=== PATIENT | female | born 2000 | race Two or more races ===

== ENCOUNTER 2019-06-19 11:26 | Emergency (ER) | payer MEDICAID ==
[~2019-06-19] VITALS: Ht 167.6 cm; Wt 131.5 kg
[2019-06-19 11:36] VITALS: BP 116/83
[2019-06-19] MEDS ORDERED: ACETAMINOPHEN 325 MG TAB PO ONE (13:45)
[2019-06-19] MEDS ORDERED: METHOCARBAMOL 500 MG TAB PO ONE (13:45)
== END 2019-06-19 14:24 | disposition home or self-care (01) ==
LOC: ER 11:26
DX: M62.838 Other muscle spasm (principal); R51 Headache; H53.8 Other visual disturbances; R20.2 Paresthesia of skin; K21.9 Gastro-esophageal reflux disease without esophagitis

== ENCOUNTER 2020-03-16 06:20 | Observation (INO) | payer MEDICAID ==
[2020-03-16 07:32] LABS: Urine Bacteria NONE SEEN /hpf (None Seen); Urine Blood Negative /uL (Negative); Urine Mucus FEW (None Seen); Urine Specific Gravity 1.016 (1.001-1.035); Urine WBC 22 /hpf (0 - 5)
[2020-03-16] MEDS ORDERED: LACTATED RINGER'S 1,000 ML IV ONE (08:30)
== END 2020-03-16 09:14 | disposition home or self-care (01) | DRG 563 ==
LOC: LDRP 06:20
PROVIDERS: ADMIT Specialist; ATTEND Specialist
DX: O60.02 Preterm labor without delivery, second trimester (principal); O62.9 Abnormality of forces of labor, unspecified; Z3A.26 26 weeks gestation of pregnancy
CPT/HCPCS: 59025; 81001; 81002; 87086; 96360; G0378; U0003

== ENCOUNTER 2020-05-29 14:47 | Observation (INO) | payer MEDICAID ==
[~2020-05-29] VITALS: Ht 167.6 cm; Wt 152.4 kg
== END 2020-05-29 16:25 | disposition home or self-care (01) ==
LOC: LDRP 14:47
PROVIDERS: ADMIT Obstetrics & Gynecology; ATTEND Obstetrics & Gynecology
DX: O42.92 Full-term premature rupture of membranes, unspecified as to length of time between rupture and onset of labor (principal); Z3A.37 37 weeks gestation of pregnancy
CPT/HCPCS: 59025; 81002; 84112; G0378; Q0114

== ENCOUNTER 2020-06-11 21:09 | Observation (INO) | payer MEDICAID | END 2020-06-11 23:59 | disposition home or self-care (01) | LOC: LDRP 21:09 | PROVIDERS: ADMIT Obstetrics & Gynecology; ATTEND Obstetrics & Gynecology | DX: O62.9 Abnormality of forces of labor, unspecified (principal); O42.92 Full-term premature rupture of membranes, unspecified as to length of time between rupture and onset of labor; Z3A.39 39 weeks gestation of pregnancy | CPT/HCPCS: 59025; 81002; 84112; 96360; 96361; G0378; Q0114 ==

== ENCOUNTER 2020-06-23 08:24 | Outpatient (CLI) | payer MEDICAID | END 2020-06-23 21:31 | disposition home or self-care (01) | LOC: UNDOADMOB 08:24 → LDRP 08:24 → OB 08:24 → UNDODISOB 08:30 → EDSTATUS 12:57 → OB 21:31 | PROVIDERS: ATTEND Specialist | DX: Z01.812 Encounter for preprocedural laboratory examination (principal); Z20.828 Contact with and (suspected) exposure to other viral communicable diseases | CPT/HCPCS: G0378 ==

== ENCOUNTER 2020-06-25 21:00 | Inpatient (IN) | payer MEDICAID ==
[~2020-06-25] VITALS: Ht 167.6 cm; Wt 154.7 kg
[2020-06-25] MEDS ORDERED: BUTORPHANOL TARTRATE 2 MG/1 ML VIAL IV PRN (21:30)
[2020-06-25] MEDS ORDERED: PHISODERM TOP SOLN 240ML BTL TOP PRN (21:30)
[2020-06-25] MEDS ORDERED: PROMETHAZINE HCL 25 MG/ML 1ML IM PRN (21:30)
[2020-06-25] MEDS ORDERED: LIDOCAINE 2%HCL (LOCAL ANESTH.) INJ 20ML MDV IJ ONE (21:30)
[2020-06-25] MEDS ORDERED: DERMOPLAST 60ML BOTTLE TOP PRN (21:30)
[2020-06-25] MEDS ORDERED: WITCH HAZEL-GLYCERIN PAD TOP PRN (21:30)
[2020-06-25 22:05] LABS: Basophils # (auto) 0 10 ^3/uL (0-0.2); Basophils % (auto) 0.3 % (0.0-2.0); Eosinophils # (auto) 0 10 ^3/uL (0-0.8); Eosinophils % (auto) 0.2 % (0.0-7.0); Hematocrit 35.6 % (36.0-46.0); Hemoglobin 12.1 g/dL (12.2-16.2); Lymphocytes % (auto) 19.1 % (10.0-50.0); Mean Corpuscular Hemoglobin 27.9 pg (28.0-32.0); Mean Corpuscular Hgb Conc. 33.9 g/dL (32.0-36.0); Mean Corpuscular Volume 82.2 fL (80.0-100.0); Monocytes # (auto) 0.7 10 ^3/uL (0-1.3); Monocytes % (auto) 6.1 % (0.0-12.0); Neutrophils # (auto) 7.9 10 ^3/uL (1.6-8.6); Neutrophils % (auto) 74.3 % (37.0-80.0); Nucleated Red Blood Cells % 0.1 %; Platelet Count (auto) 298 10^3/uL (140-450); Red Blood Cells 4.33 10^6/uL (4.0-5.20); Red Cell Distribution Width 16.3 % (11.8-14.3); White Blood Cell 10.7 10^3/uL (4.4-10.8)
[2020-06-25] MEDS: LACTATED RINGER'S 1,000 ML IV SCH (22:05)
[2020-06-25 22:24] LABS: INR 0.94 (0.9-1.15); Partial Thromboplastin Time 28.2 sec (23.0-31.2)
[2020-06-25 22:29] LABS: Alcohol, Urine < 3.0 mg/dL (0-10); Amphetamine Screen, Urine NEGATIVE (NEGATIVE); Barbiturate Scree,Urine NEGATIVE (NEGATIVE); Benzodiazephine Screen, Urine NEGATIVE (NEGATIVE); Cannabinoid Screen, Urine NEGATIVE (NEGATIVE); Cocaine Screen, Urine NEGATIVE (NEGATIVE); Opiate Scree,Urine NEGATIVE (NEGATIVE); Phencyclidine Screen, Urine NEGATIVE (NEGATIVE)
[2020-06-25 22:32] LABS: Albumin 2.6 g/dL (3.4-5.0); Calcium 8.8 mg/dL (8.5-10.1); Potassium 3.8 mmol/L (3.5-5.1)
[2020-06-25 22:34] LABS: Urine Bacteria MANY /hpf (None Seen); Urine Blood Negative /uL (Negative); Urine Specific Gravity 1.015 (1.001-1.035); Urine WBC 22 /hpf (0 - 5)
[2020-06-25 22:34] LABS: Bilirubin, Total 0.4 mg/dL (0.2-1.0); Total Protein 7.4 g/dL (6.4-8.2)
[2020-06-25] MEDS: miSOPROStol 50 MCG per PRE-CUT 1/2 TAB PO PRN (22:46)
[2020-06-26] MEDS: LACTATED RINGER'S 1,000 ML IV SCH ×3 (01:49→15:21)
[2020-06-26] MEDS: miSOPROStol 50 MCG per PRE-CUT 1/2 TAB PO PRN ×2 (03:22→09:56)
[2020-06-26] MEDS ORDERED: NALOXONE HCL 0.4 MG/ML VIAL IV ONE (14:45)
[2020-06-26] MEDS ORDERED: ROPIVACAINE HCL 200 ML EPI SCH (14:45)
[2020-06-26] MEDS ORDERED: ePHEDrine SULFATE 50 MG/ML AMP IV ONE (14:45)
[2020-06-26] MEDS ORDERED: LIDOCAINE HCL 2 %PF INJ 10ML AMP IJ ONE (14:45)
[2020-06-26] MEDS ORDERED: fentaNYL CITRATE 100 MCG/2 ML VL IV ONE (14:45)
[2020-06-26] MEDS ORDERED: LACT. RINGERS/OXYTOCIN 20UNITS 1,000 ML IV ONE (15:30)
[2020-06-26] MEDS ORDERED: LACT. RINGERS/OXYTOCIN 20UNITS 1,000 ML IV SCH (15:30)
[2020-06-27] VITALS (16 sets, daily range): BP systolic 99–151; BP diastolic 50–91
[2020-06-27] MEDS: LACTATED RINGER'S 1,000 ML IV SCH (02:24)
[2020-06-27 05:06] LABS: RPR Non Reactive (Non Reactive)
[2020-06-27] MEDS ORDERED: ceFAZolin 1GM 2 GM in D5W 5% 100 ML IV ONE (07:45)
[2020-06-27] MEDS ORDERED: ceFAZolin 1GM/50ML 50 ML IV ONE (09:01)
[2020-06-27] MEDS ORDERED: fentaNYL CITRATE 100 MCG/2 ML VL ONE ×2 (09:14→09:49)
[2020-06-27] MEDS ORDERED: ROCURONIUM 10MG/ML 10ML VIAL IV ONE (09:46)
[2020-06-27] MEDS ORDERED: METHYLERGONOVINE MALEATE 0.2 MG/ML AMP IM ONE (09:52)
[2020-06-27] MEDS ORDERED: CARBOPROST TROMETHAMINE 250 MCG/1ML VIAL IM ONE (09:52)
[2020-06-27] MEDS ORDERED: miSOPROStol 100 mcg TAB ONE (09:53)
[2020-06-27] MEDS ORDERED: LACTATED RINGER'S 1,000 ML IV SCH (10:45)
[2020-06-27] MEDS ORDERED: GUM (CHEWING) 1 GUM CHEW CHEW ONE (10:45)
[2020-06-27] MEDS ORDERED: ceFAZolin 1GM/50ML 50 ML IV SCH ×3 (10:45→16:00)
[2020-06-27] MEDS ORDERED: ACETAMINOPHEN IV 1000 MG/100ML (10MG/ML) IV PRN (10:45)
[2020-06-27] MEDS ORDERED: ONDANSETRON HCL 4 MG/2 ML VIAL IV PRN ×2 (10:45→11:00)
[2020-06-27] MEDS ORDERED: ACETAMINOPHEN IV 100 ML IV ONE (10:46)
[2020-06-27] MEDS ORDERED: MORPHINE SULFATE 4 MG/ML SYR/VIAL IV PRN (11:00)
[2020-06-27] MEDS ORDERED: ePHEDrine SULFATE 50 MG/ML AMP IV PRN (11:00)
[2020-06-27] MEDS ORDERED: hydrALAZINE HCL 20 MG/ML VL IV PRN (11:00)
[2020-06-27] MEDS: HYDROmorphone HCL 2 MG/ML VL IV PRN ×3 (11:40→17:26)
[2020-06-27] MEDS ORDERED: ACETAMINOPHEN IV 1000 MG/100ML (10MG/ML) IV ONE (21:00)
[2020-06-28] MEDS: ceFAZolin 1GM/50ML 50 ML IV SCH ×2 (00:20→08:05)
--- NOTE | 2020-06-28 00:20 | NUR ---
Ambulation: Patient OOB with standby assistance by RN. Patient down hallway with steady gait. [facility] teaching provided with returned demonstration by patient. Clean gown provided and bed linen changed. Patient ambulated back to bed with steady gait and no distress noted.
[2020-06-28 03:20] VITALS: BP 125/78
--- NOTE | 2020-06-28 04:00 | NUR ---
PER-CARE PERFORMED, PAD AND UNDERWEAR CHANGED.
[2020-06-28] MEDS: HYDROmorphone HCL 2 MG/ML VL IV PRN (04:03)
--- NOTE | 2020-06-28 04:45 | NUR ---
AMBROSIO CATHETER REMOVED, PT ENCOURAGED TO DRINK LOTS OF WATER. DRESSING REMOVED. SITE CLEAN, DRY, AMANDA INTACT. NO LEAKING, REDNESS, OR ODOR NOTED.
[2020-06-28] MEDS ORDERED: SIMETHICONE 80 MG CHEWABLE TABLET PO PRN (05:30)
[2020-06-28] MEDS ORDERED: HYDROcodone-ACET 5/325MG TAB PO PRN (05:30)
[2020-06-28] MEDS: IBUPROFEN 800 MG TAB PO PRN ×2 (05:45→18:12)
--- NOTE | 2020-06-28 06:30 | NUR ---
PATIENT AMBULATED TO RESTROOM, PT ENCOURAGED TO DRINK WATER. DRESSING REMOVED. SITE CLEAN, DRY, AMANDA INTACT. NO LEAKING, REDNESS, OR ODOR NOTED.
[2020-06-28 07:00] VITALS: BP 117/56
[2020-06-28] MEDS: HYDROcodone-ACET 5/325MG TAB PO PRN ×2 (07:18→13:37)
[2020-06-28 07:22] LABS: Basophils # (auto) 0 10 ^3/uL (0-0.2); Basophils % (auto) 0.1 % (0.0-2.0); Eosinophils # (auto) 0 10 ^3/uL (0-0.8); Eosinophils % (auto) 0.1 % (0.0-7.0); Hematocrit 28.6 % (36.0-46.0); Hemoglobin 9.7 g/dL (12.2-16.2); Lymphocytes # (auto) 1.7 10 ^3/uL (0.4-5.4); Lymphocytes % (auto) 10.5 % (10.0-50.0); Mean Corpuscular Hgb Conc. 33.9 g/dL (32.0-36.0); Mean Corpuscular Volume 82.6 fL (80.0-100.0); Monocytes # (auto) 0.9 10 ^3/uL (0-1.3); Monocytes % (auto) 5.5 % (0.0-12.0); Neutrophils # (auto) 13.4 10 ^3/uL (1.6-8.6); Neutrophils % (auto) 83.8 % (37.0-80.0); Platelet Count (auto) 250 10^3/uL (140-450); Red Blood Cells 3.46 10^6/uL (4.0-5.20); Red Cell Distribution Width 16.4 % (11.8-14.3); White Blood Cell 15.9 10^3/uL (4.4-10.8)
[2020-06-28] MEDS: DOCUSATE SOD 100 MG CAP PO SCH ×2 (10:39→21:30)
[2020-06-28 11:00] VITALS: BP 127/76
[2020-06-28 14:30] VITALS: BP 103/69
[2020-06-28 19:00] VITALS: BP 116/67
[2020-06-28 23:00] VITALS: BP 114/68
[2020-06-29 03:00] VITALS: BP 129/63
[2020-06-29] MEDS: HYDROcodone-ACET 5/325MG TAB PO PRN ×4 (03:05→21:43)
[2020-06-29] MEDS: IBUPROFEN 800 MG TAB PO PRN (04:49)
[2020-06-29 06:30] VITALS: BP 122/69
[2020-06-29] MEDS: DOCUSATE SOD 100 MG CAP PO SCH ×2 (10:13→21:43)
[2020-06-29 11:05] VITALS: BP 120/75
--- NOTE | 2020-06-29 14:10 | NUR ---
DR MONAE MADE AWARE OF PT DEPRESSION SCALE SCORE IS AT 10. ORDERS RECEIVED FOR TELE/PSYCH AND INTO BE IMPLEMENTATION.
[2020-06-29 15:22] VITALS: BP 119/75
--- NOTE | 2020-06-29 15:30 | NUR ---
per pt, pt had tele psych consult done via telemedicine.
[2020-06-29 19:00] VITALS: BP 125/68
[2020-06-29 23:00] VITALS: BP 111/66
[2020-06-30] MEDS: IBUPROFEN 800 MG TAB PO PRN (00:09)
--- NOTE | 2020-06-30 02:24 | NUR ---
CALLED TELE PSYCH FOR REPORT
[2020-06-30 03:00] VITALS: BP 139/75
[2020-06-30 07:00] VITALS: BP 117/73
[2020-06-30] MEDS: HYDROcodone-ACET 5/325MG TAB PO PRN (08:41)
[2020-06-30] MEDS: DOCUSATE SOD 100 MG CAP PO SCH (09:56)
--- NOTE | 2020-06-30 10:49 | NUR ---
Discharge: Discharge instructions given as ordered. Pt encouraged to follow up with APPRENTICE/LINEMAN as instructed. All questions and concerns addressed. Patient verbalized understanding. Medication reconciliation completed and copy given to patient. Awaiting crew person rounding.
[2020-06-30] MEDS ORDERED: PREN-96 PO (10:53)
--- NOTE | 2020-06-30 12:00 | NUR ---
Discharge: Patient taken to vehicle via ambulatory with all personal belongings, accompanied by staff and family member. No distress noted at time of departure, no adverse changes in status since initial assessment.
== END 2020-06-30 12:00 | disposition home or self-care (01) | DRG 540 ==
LOC: LDRP 21:00
PROVIDERS: ADMIT Obstetrics & Gynecology; ATTEND Obstetrics & Gynecology
PROC: 3E0P7VZ Introduction of Hormone into Female Reproductive, Via Natural or Artificial Opening (ICD-10-PCS; 2020-06-25)
PROC: 0U7C7ZZ Dilation of Cervix, Via Natural or Artificial Opening (ICD-10-PCS; 2020-06-25)
PROC: 10D00Z1 Extraction of Products of Conception, Low, Open Approach (ICD-10-PCS; principal; 2020-06-27 09:20)
DX: O48.0 Post-term pregnancy (principal); O76 Abnormality in fetal heart rate and rhythm complicating labor and delivery; O99.214 Obesity complicating childbirth; E66.01 Morbid (severe) obesity due to excess calories; O13.4 Gestational [pregnancy-induced] hypertension without significant proteinuria, complicating childbirth; O62.0 Primary inadequate contractions; Z37.0 Single live birth; Z3A.41 41 weeks gestation of pregnancy
CPT/HCPCS: 36415; 59025; 59200; 62282; 76815; 80053; 80307; 81001; 85025; 85610; 85730; 86592; 86850; 86900; 86901; 94762; 96360; 96361; 96366; 96372; 96374; 96375; G0378; J0131; J0690; J2590; J7060

== ENCOUNTER 2020-09-23 05:08 | Emergency (ER) | payer MEDICAID ==
[~2020-09-23] VITALS: Ht 167.6 cm; Wt 140.6 kg
[~2020-09-23 05:08] MED LIST: PREN-96 PO
[2020-09-23 07:24] VITALS: BP 120/84
== END 2020-09-23 07:48 | disposition home or self-care (01) ==
LOC: ER 05:08
DX: N94.6 Dysmenorrhea, unspecified (principal)
CPT/HCPCS: 81002

== ENCOUNTER 2020-11-11 21:05 | Emergency (ER) | payer MEDICAID ==
[~2020-11-11] VITALS: Ht 167.6 cm; Wt 149.7 kg
[2020-11-11 22:30] LABS: Basophils # (auto) 0 10 ^3/uL (0-0.2); Basophils % (auto) 0.3 % (0.0-2.0); Eosinophils # (auto) 0.1 10 ^3/uL (0-0.8); Eosinophils % (auto) 0.8 % (0.0-7.0); Hematocrit 38.6 % (36.0-46.0); Lymphocytes # (auto) 3.4 10 ^3/uL (0.4-5.4); Lymphocytes % (auto) 28.9 % (10.0-50.0); Mean Corpuscular Hemoglobin 26.6 pg (28.0-32.0); Mean Corpuscular Hgb Conc. 33.6 g/dL (32.0-36.0); Mean Corpuscular Volume 79.2 fL (80.0-100.0); Monocytes # (auto) 0.8 10 ^3/uL (0-1.3); Monocytes % (auto) 6.4 % (0.0-12.0); Neutrophils # (auto) 7.4 10 ^3/uL (1.6-8.6); Neutrophils % (auto) 63.6 % (37.0-80.0); Nucleated Red Blood Cells % 1.2 %; Platelet Count (auto) 292 10^3/uL (140-450); Red Blood Cells 4.87 10^6/uL (4.0-5.20); Red Cell Distribution Width 15.9 % (11.8-14.3); White Blood Cell 11.7 10^3/uL (4.4-10.8)
[2020-11-11 22:51] LABS: Alanine Aminotransferase 139 U/L (13-56); Albumin 3.3 g/dL (3.4-5.0); Anion Gap 6 (5-15); Blood Urea Nitrogen 9 mg/dL (7-18); Calcium 8.5 mg/dL (8.5-10.1); Carbon Dioxide 27 mmol/L (21-32); Chloride 108 mmol/L (98-107); Glucose 84 mg/dL (74-106); Potassium 3.8 mmol/L (3.5-5.1); Sodium 141 mmol/L (136-145)
[2020-11-11 22:56] LABS: Alkaline Phosphatase 129 U/L (45-117); Aspartate Aminotransferase 105 U/L (15-37); BUN/Creatinine Ratio 14.8; Bilirubin, Total 0.3 mg/dL (0.2-1.0); GFR African American 159 mL/min; GFR Non-African American 132 mL/min; Total Protein 7.7 g/dL (6.4-8.2)
[2020-11-11 23:11] VITALS: BP 119/70
[2020-11-11 23:33] LABS: Urine Bacteria MANY /hpf (None Seen); Urine Blood Negative /uL (Negative); Urine Specific Gravity 1.016 (1.001-1.035); Urine WBC 24 /hpf (0 - 5)
== END 2020-11-12 00:25 | disposition home or self-care (01) ==
LOC: ER 21:06
DX: R07.89 Other chest pain (principal); E66.01 Morbid (severe) obesity due to excess calories; Z68.43 Body mass index [BMI] 50.0-59.9, adult
CPT/HCPCS: 36415; 71045; 80053; 81001; 84484; 85025; 93005